=== PATIENT | female | born 1995 | race Caucasian/White ===

== ENCOUNTER 2018-03-21 13:59 | Inpatient (IN) | payer OTHER ==
[~2018-03-21] VITALS: Ht 180.3 cm; Wt 98.0 kg
[2018-03-21] MEDS ORDERED: SODIUM CHLORIDE 0.9% 1,000ML IVBOLUS ONE (14:30)
[2018-03-21] MEDS ORDERED: SODIUM CHLORIDE FLUSH 10ML SYR IVF ONE (14:30)
[2018-03-21 14:37] LABS: BASOPHILS # (AUTO) 0.08 x10^3/uL (0-0.1); BASOPHILS % (AUTO) 1 % (0-1); EOSINOPHILS # (AUTO) 0.15 x10^3/uL (0-0.4); EOSINOPHILS % (AUTO) 1 % (1-7); LYMPHOCYTES # (AUTO) 3.27 x10^3/uL (1-3.4); LYMPHOCYTES % (AUTO) 27 % (22-44); MD NO; MEAN CORPUSCULAR HEMOGLOBIN 31.1 pg (27.0-34.8); MEAN CORPUSCULAR HGB CONC 33.3 g/dL (32.4-35.8); MEAN CORPUSCULAR VOLUME 93.3 fL (80-100); MEAN PLATELET VOLUME 10.2 fL (7.4-10.4); MONOCYTES # (AUTO) 0.94 x10^3/uL (0.2-0.8); MONOCYTES % (AUTO) 8 % (2-9); NEUTROPHILS # (AUTO) 7.86 x10^3/uL (1.8-6.8); NEUTROPHILS % (AUTO) 64 % (42-75); PLATELET COUNT 243 x10^3/uL (130-400); RED BLOOD COUNT 4.65 x10^6/uL (3.82-5.3); RED CELL DISTRIBUTION WIDTH 13.3 % (9.6-15.2)
[2018-03-21 15:04] LABS: INTERNATIONAL NORMALIZED RATIO 0.99 (0.93-1.1); PROTHROMBIN TIME 10.2 Seconds (9.6-11.5)
[2018-03-21] MEDS ORDERED: D5%-0.45% NACL 1,000 ML IV ONE (16:00)
[2018-03-21] MEDS ORDERED: ONDANSETRON 2MG/ML, 2ML IVPush PRN (16:00)
[2018-03-21] MEDS ORDERED: MORPHINE SULFATE 4 MG/ML, 1ML IVPush PRN (16:00)
[2018-03-21] MEDS ORDERED: AMPICILLIN/SULBACTAM 3 GM in SODIUM CHLORIDE 0.9% 100 ML IV ONE (17:00)
[2018-03-21 17:35] VITALS: BP 123/74
[2018-03-21] MEDS ORDERED: GENTAMICIN 200 MG in SODIUM CHLORIDE 0.9% 50 ML IV ONE (19:00)
[2018-03-21 19:16] VITALS: BP 111/72
[2018-03-21] MEDS: METHYLERGONOVINE 0.2MG TABLET PO SCH (19:37)
[2018-03-21] MEDS: CLINDAMYCIN PMX 900MG/50ML 50 ML IVPB SCH (20:42)
[2018-03-22] MEDS: METHYLERGONOVINE 0.2MG TABLET PO SCH ×2 (03:15→11:04)
[2018-03-22] MEDS: CLINDAMYCIN PMX 900MG/50ML 50 ML IVPB SCH ×2 (03:15→11:04)
[2018-03-22 03:21] VITALS: BP 118/81
[2018-03-22] MEDS ORDERED: GENTAMICIN 150 MG in SODIUM CHLORIDE 0.9% 50 ML IV SCH (04:00)
[2018-03-22 07:30] VITALS: BP 111/73
== END 2018-03-22 12:10 | disposition home or self-care (01) | DRG 779 ==
LOC: ED 15:36 → 3NW 15:37 → ED 16:24 → DCLOUNGE 03-22 12:02
PROVIDERS: ADMIT Obstetrics & Gynecology; ATTEND Obstetrics & Gynecology
DX: O03.4 Incomplete spontaneous abortion without complication (principal); N93.9 Abnormal uterine and vaginal bleeding, unspecified
CPT/HCPCS: 36415; 76830; 84702; 85025; 85610; 85730; 86850; 86900; 99285; G0378; J1580; J7030